=== PATIENT | male | born 1990 | race Caucasian/White ===

== ENCOUNTER 2018-11-13 01:59 | Emergency (ER) | payer BC, OTHER ==
[2018-11-13] MEDS ORDERED: ALPRAZolam TAB* 0.5 MG PO ONE (02:16)
--- NOTE | 2018-11-13 02:21 | ED ---
Complex/Multi-Sys Presentation - HPI Summary HPI Summary: This patient is a 28 year old M brought in by ambulance to [facility] with a chief complaint of weakness since few weeks ago. Patient notes that he received bloodwork and an upper GI CT 2 days ago with no notable abnormalities. The patient rates the pain 0/10 in severity. Symptoms aggravated by nothing. Symptoms alleviated by nothing. 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 - History Of Current Complaint Chief Complaint: EDGeneral Time Seen by Provider: 11/13/18 02:07 Hx Obtained From: Patient Onset/Duration: Gradual Onset, Lasting Weeks, Still Present Timing: Constant Severity Currently: Mild Severity Initially: Mild Aggravating Factor(s): nothing Alleviating Factor(s): nothing Associated Signs And Symptoms: Positive: Weakness - Allergies/Home Medications Allergies/Adverse Reactions: Allergies Allergy/AdvReac Type Severity Reaction Status Date / Time amoxicillin Allergy Rash Verified 11/13/18 02:06 PMH/Surg Hx/FS Hx/Imm Hx Cardiovascular History: Denies: Hx Hypertension, Hx Pacemaker/ICD Sensory History: Denies: Hx Hearing Aid Opthamlomology History: Denies: Hx Legally Blind EENT History: Denies: Hx Deafness Psychiatric History: Denies: Hx Panic Disorder - Surgical History Surgery Procedure, Year, and Place: EAR SURGERY LEFT....GRAFTING TO REPAIR EAR DRUM NO DEVICE INSERTED, TONSILECTOMY Infectious Disease History: No Infectious Disease History: Denies: Traveled Outside the [place] in Last 30 Days - Family History Known Family History: Negative: Seizure Disorder, Blood Disorder - Social History Alcohol Use: Occasionally Substance Use Type: Reports: None Smoking Status (MU): Never Smoked Tobacco Review of Systems Negative: Fever Negative: Epistaxis Negative: Cough Negative: Vomiting Positive: Weakness All Other Systems Reviewed And Are Negative: Yes Physical Exam - Summary Physical Exam Summary: VITAL SIGNS: Reviewed. GENERAL: Patient is a well-developed and nourished MALE who is lying comfortable in the stretcher. Patient is not in any acute respiratory distress. HEAD AND FACE: No signs of trauma. No ecchymosis, hematomas or skull depressions. No sinus tenderness. EYES: PERRLA, EOMI x 2, No injected conjunctiva, no nystagmus. EARS: Hearing grossly intact. Ear canals and tympanic membranes are within normal limits. MOUTH: Oropharynx within normal limits. NECK: Supple, trachea is midline, no adenopathy, no JVD, no carotid bruit, no c- spine tenderness, neck with full ROM. CHEST: Symmetric, no tenderness at palpation LUNGS: Clear to auscultation bilaterally. No wheezing or crackles. CVS: Regular rate and rhythm, S1 and S2 present, no murmurs or gallops appreciated. ABDOMEN: Soft, non-tender. No signs of distention. No rebound no guarding, and no masses palpated. Bowel sounds are normal. EXTREMITIES: FROM in all major joints, no edema, no cyanosis or clubbing. NEURO: Alert and oriented x 3. No acute neurological deficits. Speech is normal and follows commands. SKIN: Dry and warm Triage Information Reviewed: Yes Vital Signs On Initial Exam: Initial Vitals Temp Pulse Resp BP Pulse Ox 98.4 F 85 15 140/77 98 11/13/18 02:02 11/13/18 02:02 11/13/18 02:02 11/13/18 02:02 11/13/18 02:02 Vital Signs Reviewed: Yes Diagnostics - Vital Signs Vital Signs Temp Pulse Resp BP Pulse Ox 11/13/18 02:02 98.4 F 85 15 140/77 98 - Laboratory Result Diagrams: 11/13/18 02:27 11/13/18 02:27 Lab Statement: Any lab studies that have been ordered have been reviewed, and results considered in the medical decision making process. - Radiology CXR Radiology Interpretation Completed By: ED Physician - Dr. Flynn, pending official report Summary of Radiographic Findings: no acute process - EKG 02:21 Cardiac Rate: NL - at 77 bpm EKG Rhythm: Sinus Rhythm ST Segment: Non-Specific - non-specific T wave changes in anterior leads EKG Comparison: No Significant Change - from EKG on 12/30/11 Summary of EKG Findings: sinus rhythm at 77 bpm with non-specific T wave changes in anterior leads Complex Multi-Symp Course/Dx Course Of Treatment: This patient is a 28 year old M brought in by ambulance to [facility] with a chief complaint of weakness since few weeks ago. Patient notes that he received bloodwork and an upper GI CT 2 days ago with no notable abnormalities. An EKG reveals sinus rhythm at 77 bpm with non-specific T wave changes in anterior leads. No change from EKG taken on 12/30/11. CXR reveals, per ED physician, no acute process. Test results with no significant abnormalities. In the ED course the patient was given Xanax. Patient will be discharged with follow up from PCP. The patient is agreeable with this plan. - Diagnoses Provider Diagnoses: Weakness Discharge - Sign-Out/Discharge Documenting (check all that apply): Patient Departure - discharge - Discharge Plan Condition: Stable Disposition: HOME Patient Education Materials: Weakness (ED) Referrals: Care [facility] [Outside] Additional Instructions: Follow up with primary care physician in 1-2 days. Return to the emergency department with any new or worsening symptoms. - Attestation Statements Document Initiated by Scribe: Yes Documenting Scribe: Autumn Antunez Provider For Whom Scribe is Documenting (Include Credential): Rito Flynn MD Scribe Attestation: Autumn Stubbs, scribed for Rito Flynn MD on 11/13/18 at 0340. Status of Scribe Document: Ready
[2018-11-13 02:34] LABS: ABS Basophils 0 10^3/ul (0-0.2); ABS Eosinophils 0 10^3/ul (0-0.6); ABS Lymphocytes 0.7 10^3/ul (1.0-4.8); ABS Monocytes 0.4 10^3/ul (0-0.8); ABS Neutrophils 3.9 10^3/ul (1.5-7.7); ABS Nucleated RBC 0 10^3/ul; Eosinophil % 0.5 %; Hematocrit 42 % (42-52); Hemoglobin 14.5 g/dl (14.0-18.0); Lymphocyte % 13.6 %; Mean Corpuscular HGB Conc 34 g/dl (31-36); Mean Corpuscular Hemoglobin 30 pg (27-31); Mean Corpuscular Volume 87 fL (80-94); Nucleated Red Blood Cells % 0; Platelet Count 200 10^3/ul (150-450); Red Blood Count 4.87 10^6/ul (4.00-5.40); Red Cell Distribution Width 13 % (10.5-15); White Blood Count 5.1 10^3/ul (3.5-10.8)
--- OUTSIDE RECORDS SUMMARY | 2018-11-13 02:53 | XMS REPORT | Continuity of Care Document ---
:1990 External Reference #:[id number] Author Name Thomas Harrison M.D. Address [address] [place] [address] [address] [place] [address] Care Team Providers Name Role Phone Thomas Harrison M.D. 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 Payers Description No Information Available Advance Directives Description No Information Available Problems Description No Information Family History Date Family Member(s) Problem(s) Comments General Cancer General Heart Attack Father Cancer Mother Unknown Children 2 Siblings 2 Grandchildren None Social History Type Date Description Comments Sex Unknown Marital Status Legal Status: Work Status Full-Time Employment ETOH Use Occasionally consumes alcohol Tobacco Use Start: Unknown Patient has never smoked Recreational Drug Use Never Used Drugs Allergies, Adverse Reactions, Alerts Description No Known Drug Allergies Medications Medication Date Status Form Strength Qnty SIG Indications Ordering Provider Zantac 150 11/04/19 Active Tablets 150mg 60tabs 1 tab by K21.0 Hunter, Maximum 19 mouth Ahmad M., Strength twice a M.D. day as needed K30 Omeprazole 11/04/[address] 40mg 90caps 1 by mouth K21.0 Hunter Ahmad every day M., M.D. K30 Trazodone HCL 11/04/2018 Active Tablets 50mg 60tabs 1-2 tab by G47.00 Hunter Ahmad mouth every M., M.D. night as needed F41.9 Famotidine - Hx Tablets 20mg Take One Tablet By K21.0 Unknown 11/04/2018 Mouth Twice A Day Metoclopramide HCL - Hx Tablets 10mg Take One Tablet By Unknown 10/27/2018 Mouth Four Times A Day as Needed For Nausea Immunizations Description No Information Available Vital Signs Date Vital Result Comment 11/04/2018 10:01am BP Systolic 116 mmHg BP Diastolic 66 mmHg Height 69 inches 5'9" Weight 270.00 lb BMI (Body Mass Index) 39.9 kg/m2 Heart Rate 76 /min Body Temperature 97.4 F Respiratory Rate 16 /min Results Description No Information Available Procedures Date Code Description Status 11/04/2018 22898 Visual Screening Test Completed 11/04/2018 70086 Audiometry, Bekesy, Screening Completed Encounters Type Date Location Provider Dx Diagnosis Office Visit 11/04/2018 Thomas Waters Z00.01 Encounter for 10:15a M.DTony general adult medical exam w abnormal findings L20.9 Atopic dermatitis, unspecified J30.9 Allergic rhinitis, unspecified K21.0 Gastro-esophageal reflux disease with esophagitis K30 Functional dyspepsia R06.02 Shortness of breath R07.9 Chest pain, unspecified F41.9 Anxiety disorder, unspecified G47.00 Insomnia, unspecified K58.0 Irritable bowel syndrome with diarrhea H53.30 Unspecified disorder of binocular vision Plan of Treatment 11/04/2018 - Thomas Harrison M.D.Z00.01 Encounter for general adult medical examination with abnormal findingsComments:GOOD NUTRITION /EXERCISEDENTAL/ FLOSSING/ SELF CAREDROWNING/ SUN SAFETYSEAT BELT/ DRIVING SAFETYSPORT BIKE/ HELMET USESPORTS/ INJURY PREVENTIONVIOLENCE PREVENTION/ GUN SAFETYPARENTING ADVICE"SAFE AT HOME"SEX EDUCATION/ COUNSELINGBREAST/ TESTICULAR SELF EXAMEDUCATION GOALS/ ACTIVITIESLIMIT TV/ INTERNETUSETOBACCO/ ALCOHOL/ DRUGS/ INHALANTSPEER REFUSAL SKILLSSOCIAL INTERACTIONFAMILY FUNCTIONINGSELF CONTROLDEPRESSION/ ANXIETYNEXT APPOINTMENTYEARLY PHYSICAL WELLNESS [id number] Atopic dermatitis, unspecifiedComments:SKIN CARE INSTRUCTIONS LOTION OR BABY OIL 2-3 APPLICATION PER DAYUSE MOISTURIZING SOAPAVOID PROLONGED WATER EXPOSUREAVOID USING HOT WATER IN MDECOKI48.9 Allergic rhinitis, unspecifiedComments:INCREASE PO FLUID USE ANTIHISTAMINE PRN SECOND HAND SMOKING [id number] Gastro-esophageal reflux disease with esophagitisNew Medication: Zantac 150 Maximum Strength 150 mg - 1 tab by mouth twice a day as neededOmeprazole 40 mg - 1 by mouth every dayNew Xrays:Upper GI W/ Small Bowel, Incl. Mult Film, Ordered: 11/04/18Comments:AVOID CAFFEINE, ETOH AND SPICY FOODSTUMS OR MYLANTA PRN CALL WITH PROBLEMS OR [id number] Functional dyspepsiaNew Medication:Zantac 150 Maximum Strength 150 mg - 1 tab by mouth twice a day as neededOmeprazole 40 mg - 1 by mouth every dayComments:AVOID CAFFEINE, ETOH AND SPICY FOODSTUMS OR MYLANTA PRN CALL WITH PROBLEMS OR PHZEKONNU51.02 Shortness of breathComments:OBSERVE AND VJFNBHJAS36.9 Chest pain , unspecifiedComments:OBSERVE AND CDEECTDML30.9 Anxiety disorder, unspecifiedNew Medication:Trazodone HCL 50 mg - 1-2 tab by mouth every night as neededComments:COUNCELLING AND REASSURANCE RELAXATION TECHNIQUES DISCUSSEDCOUNSELED RE: STRESSORS IN LIFE AVOID ALLENERGY/HIGH CAFFEINE IPSKIEJ36.00 Insomnia, unspecifiedNew Medication:Trazodone HCL 50 mg - 1-2 tab by mouth every night as neededComments:COUNCELLING AND REASSURANCE RELAXATION TECHNIQUES DISCUSSED COUNSELED RE: STRESSORS IN LIFE TYLENOLPM OR MOTRIN PM PRNK58.0 Irritable bowel syndrome with diarrheaComments:TYLENOL OR MOTRIN PRNINCREASE PO FLUIDF/U SJVNJPFBG31.30 Unspecified disorder of binocular visionComments:USE GLASSES/CONTACTSF/U WITH OPHTHALMOLOGY
--- OUTSIDE RECORDS SUMMARY | 2018-11-13 02:53 | XMS REPORT | Continuity of Care Document ---
:1990 External Reference #:[id number] Author Name Thomas Harrison M.D. Address [address] [place] [address] [address] [place] [address] Care Team Providers Name Role Phone Thomas Harrison M.D. 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 K30 Trazodone HCL 11/04/2018 Active Tablets 50mg 60tabs 1-2 tab by G47.00 Hunter, Ahmad mouth every M., M.D. night as needed F41.9 Famotidine - Hx Tablets 20mg Take One Tablet By K21.0 Unknown 11/04/2018 Mouth Twice A Day Metoclopramide HCL - Hx Tablets 10mg Take One Tablet By Unknown 10/27/2018 Mouth Four Times A Day as Needed For Nausea Immunizations Description No Information Available Vital Signs Date Vital Result Comment 11/11/2018 10:31am BP Systolic 142 mmHg BP Diastolic 70 mmHg Height 69 inches 5'9" Weight 273.00 lb BMI (Body Mass Index) 40.3 kg/m2 Heart Rate 79 /min Respiratory Rate 16 /min 11/04/2018 10:01am BP Systolic 116 mmHg BP Diastolic 66 mmHg Height 69 inches 5'9" Weight 270.00 lb BMI (Body Mass Index) 39.9 kg/m2 Heart Rate 76 /min Body Temperature 97.4 F Respiratory Rate 16 /min Results Test Date Facility Test Result H/L Range Note Laboratory test 11/11/2018 [facility] TSH, Ultrasenstive <pending> finding [address] [employer] (262)- - T4 Free - Thyroxine <pending> Laboratory test finding 11/11/2018 [facility] Sed Rate <pending> [facility] [employer] IMELDA (199)- - Procedures Date Code Description Status 11/11/2018 79976 EKG Completed 11/04/2018 50556 Visual Screening Test Completed 11/04/2018 58099 Audiometry, Bekesy, Screening Completed Encounters Type Date Location Provider Dx Diagnosis Office Visit 11/11/2018 Thomas Waters, L20.9 Atopic dermatitis, 11:00a M.DTony unspecified J30.9 Allergic rhinitis, unspecified K21.0 Gastro-esophageal reflux disease with esophagitis K30 Functional dyspepsia R06.02 Shortness of breath R07.9 Chest pain, unspecified F41.9 Anxiety disorder, unspecified G47.00 Insomnia, unspecified K58.0 Irritable bowel syndrome with diarrhea H53.30 Unspecified disorder of binocular vision F33.9 Major depressive disorder, recurrent, unspecified R00.2 Palpitations Office Visit 11/04/2018 10:15a Thomas Waters, Z00.01 Encounter for general M.D. adult medical exam w abnormal findings L20.9 Atopic dermatitis, unspecified J30.9 Allergic rhinitis, unspecified K21.0 Gastro-esophageal reflux disease with esophagitis K30 Functional dyspepsia R06.02 Shortness of breath R07.9 Chest pain, unspecified F41.9 Anxiety disorder, unspecified G47.00 Insomnia, unspecified K58.0 Irritable bowel syndrome with diarrhea H53.30 Unspecified disorder of binocular vision Plan of Treatment 11/11/2018 - Thomas Harrison M.D.L20.9 Atopic dermatitis, unspecifiedComments: SKIN CARE INSTRUCTIONS LOTION OR BABY OIL 2-3 APPLICATION PER DAYUSE MOISTURIZING SOAPAVOID PROLONGED WATER EXPOSUREAVOID USING HOT WATER IN MFHXQVQ90.9 Allergic rhinitis, unspecifiedComments:INCREASE PO FLUID USE ANTIHISTAMINE PRN SECOND HAND SMOKING QZSGEERYEE55.0 Gastro-esophageal reflux disease with esophagitisComments:AVOID CAFFEINE, ETOH AND SPICY FOODSTUMS OR MYLANTA PRN CALL WITH PROBLEMS OR [id number] Functional dyspepsiaComments: AVOID CAFFEINE, ETOH AND SPICY FOODSTUMS OR MYLANTA PRN CALL WITH PROBLEMS OR AJYUJJNOB94.02 Shortness of breathComments:OBSERVE AND TWAPXBPVV19.9 Chest pain , unspecifiedComments:OBSERVE AND WQCPEKQKL98.9 Anxiety disorder, unspecifiedComments:COUNCELLING AND REASSURANCE RELAXATION TECHNIQUES DISCUSSEDCOUNSELED RE: STRESSORS IN LIFE AVOID ALLENERGY/HIGH CAFFEINE XRVHMUY61.00 Insomnia, unspecifiedComments:COUNCELLING AND REASSURANCE RELAXATION TECHNIQUES DISCUSSED COUNSELED RE: STRESSORS IN LIFE TYLENOLPM OR MOTRIN PM PRNK58.0 Irritable bowel syndrome with diarrheaComments:TYLENOL OR MOTRIN PRNINCREASE PO FLUIDF/U PAKXUIRXI79.30 Unspecified disorder of binocular visionComments:USE GLASSES/CONTACTSF/U WITH [id number] Major depressive disorder, recurrent, unspecifiedComments:COUNCELLING AND REASSURANCE RELAXATION TECHNIQUES DISCUSSED COUNSELED RE: STRESSORS IN LIFEFollow up:1 auwwbU13.2 PalpitationsComments:OBSERVEREASSURE
[2018-11-13 03:10] LABS: Albumin 4.4 g/dL (3.2-5.2); Albumin/Globulin Ratio 1.4 (1-3); BUN/Creatinine Ratio 9.9 (8-20); Calcium 9.3 mg/dL (8.6-10.3); EGFR Non-African American 71.4 (>60); Globulin 3.1 g/dL (2-4); Magnesium 1.9 mg/dL (1.9-2.7); Potassium 3.9 mmol/L (3.5-5.0); Total Bilirubin 0.7 mg/dL (0.2-1.0); Total Protein 7.5 g/dL (6.4-8.9)
[2018-11-13 03:34] LABS: TSH (Thyroid Stimulating Horm) 0.81 mcIU/mL (0.34-5.60)
[2018-11-13 03:55] VITALS: BP 132/63
== END 2018-11-13 03:55 | disposition home or self-care (01) ==
LOC: ED 01:59
DX: R53.1 Weakness (principal); Z88.0 Allergy status to penicillin
CPT/HCPCS: 36415; 71045; 80053; 83735; 84443; 84484; 85025; 93005; 99282; A9270-GY